=== PATIENT | female | born 1995 | race Caucasian/White ===

== ENCOUNTER 2018-10-16 23:01 | Emergency (ER) | payer SELFPAY ==
[2018-10-16] MEDS ORDERED: Albuterol/Ipratropium 3.0-0.5 MG/3 ML Neb Soln NEB ONE (23:03)
--- NOTE | 2018-10-16 23:07 | EDM.PDOC ---
ED HPI GENERAL MEDICAL PROBLEM - General Stated Complaint: ASTHMA ATTACK Time Seen by Provider: 10/16/18 23:04 - History of Present Illness INITIAL COMMENTS - FREE TEXT/NARRATIVE: HISTORY AND PHYSICAL: History of present illness: Patient's 22-year-old female with history of asthma presents with concern shortness of breath and chest pain she is her inhaler prior to arrival she is still a smoker she denies fever chills nausea vomiting trauma or other concern. Review of systems: As per history of present illness and below otherwise all systems reviewed and negative. Past medical history: As per history of present illness and as reviewed below otherwise noncontributory. Surgical history: As per history of present illness and as reviewed below otherwise noncontributory. Social history: No reported history of drug or alcohol abuse. Family history: As per history of present illness and as reviewed below otherwise noncontributory. Physical exam: HEENT: Atraumatic, normocephalic, pupils reactive, negative for conjunctival pallor or scleral icterus, mucous membranes moist, throat clear, neck supple, nontender, trachea midline. Lungs: Slightly coarse and diminished rare end-expiratory wheezing noted, breath sounds equal bilaterally, chest nontender. Heart: S1S2, regular, negative for clicks, rubs, or JVD. Abdomen: Soft, nondistended, nontender. Negative for masses or hepatosplenomegaly. Negative for costovertebral tenderness. Pelvis: Stable nontender. Genitourinary: Deferred. Rectal: Deferred. Extremities: Atraumatic, negative for cords or calf pain. Neurovascular unremarkable. Neuro: Awake, alert, oriented. Cranial nerves II through XII unremarkable. Cerebellum unremarkable. Motor and sensory unremarkable throughout. Exam nonfocal. Diagnostics: Chest x-ray EKG Therapeutics: Albuterol ipratropium neb Solu-Medrol 125 mg IM Impression: #1 acute asthmatic exacerbation Definitive disposition and diagnosis as appropriate pending reevaluation and review of above. ED ROS GENERAL - Review of Systems Review Of Systems: ROS reveals no pertinent complaints other than HPI. ED EXAM, GENERAL - Physical Exam Exam: See Below (See dictation) Course - Orders/Labs/Meds Orders: Active Orders 24 hr Category Date Time Status EKG Documentation Completion [RC] STAT Care 10/16/18 23:04 Active RT Aerosol Therapy [RC] ASDIRECTED Care 10/16/18 23:03 Active Chest 1V Frontal [CR] Stat Exams 10/16/18 23:05 Ordered Meds: Medications Discontinued Medications Generic Name Dose Route Start Last Admin Trade Name Madhu PRN Reason Stop Dose Admin Albuterol/Ipratropium 3 ml 10/16/18 23:03 Duoneb 3.0-0.5 Mg/3 Ml NEB 10/16/18 23:04 ONETIME ONE Departure - Departure Time of Disposition: 00:11 Disposition: Against Medical Advice 07 Condition: Good Clinical Impression: Exacerbation of asthma - Discharge Information - My Orders Last 24 Hours: My Active Orders 10/16/18 23:04 EKG Documentation Completion [RC] STAT 10/16/18 23:05 Chest 1V Frontal [CR] Stat - Assessment/Plan Last 24 Hours: My Active Orders 10/16/18 23:04 EKG Documentation Completion [RC] STAT 10/16/18 23:05 Chest 1V Frontal [CR] Stat
== END 2018-10-17 00:14 | disposition left against medical advice (07) ==
LOC: MW.ED 23:01
DX: J45.901 Unspecified asthma with (acute) exacerbation (principal); Z53.20 Procedure and treatment not carried out because of patient's decision for unspecified reasons
CPT/HCPCS: 99283-25; J7620-GY